=== PATIENT | male | born 1945 | race Hispanic/Latino ===

== ENCOUNTER 2018-04-29 10:00 | Outpatient (AMBR) | payer MEDICARE, MEDICAID, SELFPAY ==
--- NOTE | 2018-04-14 10:54 | PT.OIERPT ---
PT OP Initial Eval Patient Information Visit Reasons: back pain Medical Diagnosis: M54.5; M54.6 Treatment Dx #1: Back Pain Treatment Dx #2: Hip Weakness Start of Care: 04/14/18 Date of Onset: 2 years ago Initial Assessment Subjective Pt is a 72 y/o male c/o chronic back pain (02/09) with BLE weakness and tingling started several years ago. Pt's past xray showed moderate changes within his L3-L5 disc. Pt does not know his recent MRI results. Pt currently has difficulty with prolonged walking, standing, chores, self care activities, and lifting activities. Objective L/S AROM: all motions are WFL with pain end range extension Hip PROM: all motions are WFL but limited IR and ER motions Hip MMTs: grossly 3-/5 Palpation: increase paraspinal tone L2-L5; hypomobile facets L3-L5 facets oswestry score: 57% Assessment Pt demonstrate back pain with hip weakness consistent with L/S stenosis leading to decline function. Pt will attempt physical therapy if pain persist Pt will be refer back to PCP. Short Term and [employer] Goals 1) Increase L/S AROM and decrease oswestry score to 30% in 6 wks to be able to walk more than 1.5 hr 2) Increase core strength in 6 wks to be able to perform lifting activities 3) Increase bilateral hip AROM WFL in 6 wks to be able to perform chores 4) Increase bilateral hip MMTs to 4-/5 in 6 wks to be able to perform self care activities 5) Indep with HEP Treatment Plan 1) Manual Therapy 2) Therapeutic Activities 3) Therapeutic Exercises 4) Modalities (ice, heat, traction) Frequency and Duration 2 x wk for 6 wks Certification Dates: 04/14/18 to 07/14/18 Office Procedures PT Outpatient G-Codes Date of Service PT Date of Service: 04/14/18 G-Codes Walking & Moving Around Mobility Current Status G-Code: G8978: CL 60-80% Mobility Status G-Code: G8979: CJ 20-40% PT Procedures PT Date of Service: 04/14/18 OP PT Eval Mod Complex 30 minutes: Yes
--- NOTE | 2018-04-14 11:03 | PTNOTE_ITS ---
PT OP Initial Eval Patient Information Visit Reasons: back pain Medical Diagnosis: M54.5; M54.6 Treatment Dx #1: Back Pain Treatment Dx #2: Hip Weakness Start of Care: 04/14/18 Date of Onset: 2 years ago Initial Assessment Subjective Pt is a 72 y/o male c/o chronic back pain (02/09) with BLE weakness and tingling started several years ago. Pt's past xray showed moderate changes within his L3- L5 disc. Pt does not know his recent MRI results. Pt currently has difficulty with prolonged walking, standing, chores, self care activities, and lifting activities. Objective L/S AROM: all motions are WFL with pain end range extension Hip PROM: all motions are WFL but limited IR and ER motions Hip MMTs: grossly 3-/5 Palpation: increase paraspinal tone L2-L5; hypomobile facets L3-L5 facets oswestry score: 57% Assessment Pt demonstrate back pain with hip weakness consistent with L/S stenosis leading to decline function. Pt will attempt physical therapy if pain persist Pt will be refer back to PCP. Short Term and [employer] Goals 1) Increase L/S AROM and decrease oswestry score to 30% in 6 wks to be able to walk more than 1.5 hr 2) Increase core strength in 6 wks to be able to perform lifting activities 3) Increase bilateral hip AROM WFL in 6 wks to be able to perform chores 4) Increase bilateral hip MMTs to 4-/5 in 6 wks to be able to perform self care activities 5) Indep with HEP Treatment Plan 1) Manual Therapy 2) Therapeutic Activities 3) Therapeutic Exercises 4) Modalities (ice, heat, traction) Frequency and Duration 2 x wk for 6 wks Certification Dates: 04/14/18 to 07/14/18 Office Procedures PT Outpatient G-Codes Date of Service PT Date of Service: 04/14/18 G-Codes Walking & Moving Around Mobility Current Status G-Code: G8978: CL 60-80% Mobility Status G-Code: G8979: CJ 20-40% PT Procedures PT Date of Service: 04/14/18 OP PT Eval Mod Complex 30 minutes: Yes
--- NOTE | 2018-04-19 11:56 | PT.ODAYNRPT ---
PT Outpatient Daily Note Date of Service: April 19, 2018 OP Daily Note Visit Reasons: back pain Outpatient Physical Therapy Treatment Date: 04/19/18 Subjective: pt doing ok today with no complaints. Objective: see flow sheet. Assessment: pt walked in using SPC. assisted with bed mobility. pt had no difficulty understanding and performing the exercises today. he was on hotpack prior to ther ex. pt demonstrated fair mobility throughout ther ex. pt tolerated sci-fit with no fatigue or increase in pain. Plan: continue POC per PT. Length of Time (minutes) of Treatment: 30 Minutes Office Procedures PT Outpatient G-Codes Date of Service PT Date of Service: 04/14/18 G-Codes Walking & Moving Around Mobility Current Status G-Code: G8978: CL 60-80% Mobility Status G-Code: G8979: CJ 20-40% PT Procedures PT Date of Service: 04/19/18 Therapeutic Exercise 30 minutes: Yes PT Procedures PT Date of Service: 04/14/18 OP PT Eval Mod Complex 30 minutes: Yes
--- NOTE | 2018-04-21 10:25 | PT.ODAYNRPT ---
PT Outpatient Daily Note Date of Service: April 21, 2018 OP Daily Note Visit Reasons: back pain Outpatient Physical Therapy Treatment Date: 04/21/18 Subjective: Pt mention that his back feels a little better. Objective: Please see flow chart for list of ther ex performed Assessment: slight pain with hip distraction using belt. Pt was fatigue at the end of PT session. Plan: Continue with PT Length of Time (minutes) of Treatment: 30 Minutes Office Procedures PT Outpatient G-Codes Date of Service PT Date of Service: 04/14/18 G-Codes Walking & Moving Around Mobility Current Status G-Code: G8978: CL 60-80% Mobility Status G-Code: G8979: CJ 20-40% PT Procedures PT Date of Service: 04/19/18 Therapeutic Exercise 30 minutes: Yes PT Procedures PT Date of Service: 04/14/18 OP PT Eval Mod Complex 30 minutes: Yes PT Procedures PT Date of Service: 04/21/18 Therapeutic Exercise 30 minutes: Yes
--- NOTE | 2018-04-26 12:56 | PT.ODAYNRPT ---
PT Outpatient Daily Note Date of Service: April 26, 2018 OP Daily Note Visit Reasons: back pain Outpatient Physical Therapy Treatment Date: 04/26/18 Subjective: pt c/o having low back pain upon visit. Objective: see flow sheet. Assessment: pt walked in with SPC but he can ambulate without the SPC with short distances. good balance noted without SPC. pt seemed a little stiff with bed exercises at first so cued pt to relax and rest his head on pillow. assisted pt with bed mobility. pt had good endurance during after sci-fit. Plan: continue POC per PT. Length of Time (minutes) of Treatment: 30 Minutes Office Procedures PT Outpatient G-Codes Date of Service PT Date of Service: 04/14/18 G-Codes Walking & Moving Around Mobility Current Status G-Code: G8978: CL 60-80% Mobility Status G-Code: G8979: CJ 20-40% PT Procedures PT Date of Service: 04/19/18 Therapeutic Exercise 30 minutes: Yes PT Procedures PT Date of Service: 04/14/18 OP PT Eval Mod Complex 30 minutes: Yes PT Procedures PT Date of Service: 04/21/18 Therapeutic Exercise 30 minutes: Yes PT Procedures PT Date of Service: 04/26/18 Therapeutic Exercise 30 minutes: Yes
--- NOTE | 2018-04-29 12:54 | PT.ODAYNRPT ---
PT Outpatient Daily Note Date of Service: April 29, 2018 OP Daily Note Visit Reasons: back pain Outpatient Physical Therapy Treatment Date: 04/29/18 Subjective: Pt does not want the hot pack today. Pt feels that it makes is flank hurt. Pt feels that his back pain is a little better. Objective: Please see flow chart for list of ther ex performed Assessment: tolerate exercises with minimal pain; no hot pack was used today more flexion biased exercises performed Plan: Continue with PT Length of Time (minutes) of Treatment: 30 Minutes Office Procedures PT Outpatient G-Codes Date of Service PT Date of Service: 04/14/18 G-Codes Walking & Moving Around Mobility Current Status G-Code: G8978: CL 60-80% Mobility Status G-Code: G8979: CJ 20-40% PT Procedures PT Date of Service: 04/19/18 Therapeutic Exercise 30 minutes: Yes PT Procedures PT Date of Service: 04/14/18 OP PT Eval Mod Complex 30 minutes: Yes PT Procedures PT Date of Service: 04/21/18 Therapeutic Exercise 30 minutes: Yes PT Procedures PT Date of Service: 04/26/18 Therapeutic Exercise 30 minutes: Yes PT Procedures PT Date of Service: 04/29/18 Therapeutic Exercise 30 minutes: Yes
== END 2018-05-02 23:59 | disposition home or self-care (01) ==
PROVIDERS: PCP Physician Assistant; Referring Provider Physician Assistant; Visit Provider Physician Assistant
DX: I10 Essential (primary) hypertension (principal)
CPT/HCPCS: 97110; 97162; G8978; G8979

== ENCOUNTER 2018-05-28 13:00 | Outpatient (AMBR) | payer MEDICARE, MEDICAID, SELFPAY ==
--- NOTE | 2018-05-04 11:02 | PT.ODAYNRPT ---
PT Outpatient Daily Note Date of Service: May 04, 2018 OP Daily Note Visit Reasons: back pain Outpatient Physical Therapy Treatment Date: 05/04/18 Subjective: Pt mention that his low back is a little better. Pt stated that without the hot pack from previous visit; he didn't have the right flank pain. Pt still notice that is legs are weak and fatigues with prolonged walking. Objective: Please see flow chart for list of ther ex performed Assessment: no increase back pain with traction; minimal change with LE symptoms after traction. fatigue with LE strengthening exercises Plan: Continue with PT Length of Time (minutes) of Treatment: 45 Minutes Office Procedures PT Procedures PT Date of Service: 05/04/18 Traction Mechanical: Yes Therapeutic Activity 15 minutes: Yes Therapeutic Exercise 15 minutes: Yes
--- NOTE | 2018-05-06 11:26 | PT.ODAYNRPT ---
PT Outpatient Daily Note Date of Service: May 06, 2018 OP Daily Note Visit Reasons: back pain Outpatient Physical Therapy Treatment Date: 05/06/18 Subjective: Pt's feels okay. Pt mention that traction from previous visit seems to help Objective: Please see flow chart for list of ther ex performed Assessment: tolerate exercises with minimal pain; added more hip strengthening exercises today. Pt was fatigue at the end of PT session Plan: Continue with PT Length of Time (minutes) of Treatment: 45 Minutes Office Procedures PT Procedures PT Date of Service: 05/04/18 Traction Mechanical: Yes Therapeutic Activity 15 minutes: Yes Therapeutic Exercise 15 minutes: Yes PT Procedures PT Date of Service: 05/06/18 Traction Mechanical: Yes Therapeutic Activity 15 minutes: Yes Therapeutic Exercise 15 minutes: Yes
--- NOTE | 2018-05-10 11:48 | PT.ODAYNRPT ---
PT Outpatient Daily Note Date of Service: May 10, 2018 OP Daily Note Visit Reasons: back pain Outpatient Physical Therapy Treatment Date: 05/10/18 Subjective: Pt's back is okay. Pt notice a little more upper back pain today. Pt still feels weakness in his legs. Objective: Please see flow chart for list of ther ex performed Assessment: tolerate exercises with minimal pain; added more hip exercises Plan: Continue with PT Length of Time (minutes) of Treatment: 30 Minutes Office Procedures PT Procedures PT Date of Service: 05/04/18 Traction Mechanical: Yes Therapeutic Activity 15 minutes: Yes Therapeutic Exercise 15 minutes: Yes PT Procedures PT Date of Service: 05/06/18 Traction Mechanical: Yes Therapeutic Activity 15 minutes: Yes Therapeutic Exercise 15 minutes: Yes PT Procedures PT Date of Service: 05/10/18 Therapeutic Exercise 30 minutes: Yes
--- NOTE | 2018-05-12 11:22 | PT.ODAYNRPT ---
PT Outpatient Daily Note Date of Service: May 12, 2018 OP Daily Note Visit Reasons: back pain Outpatient Physical Therapy Treatment Date: 05/12/18 Subjective: Pt feels that his back is feeling better with more strength in the legs. Pt has been able to walk more with less leg symptoms. Traction continues to help his back pain Objective: Please see flow chart for list of ther ex performed Assessment: improved overall back mobility and LE strength; walking with less limp Plan: Continue with PT Length of Time (minutes) of Treatment: 45 Minutes Office Procedures PT Procedures PT Date of Service: 05/04/18 Traction Mechanical: Yes Therapeutic Activity 15 minutes: Yes Therapeutic Exercise 15 minutes: Yes PT Procedures PT Date of Service: 05/06/18 Traction Mechanical: Yes Therapeutic Activity 15 minutes: Yes Therapeutic Exercise 15 minutes: Yes PT Procedures PT Date of Service: 05/10/18 Traction Mechanical: Yes Therapeutic Exercise 30 minutes: Yes PT Procedures PT Date of Service: 05/12/18 Traction Mechanical: Yes Therapeutic Activity 15 minutes: Yes Therapeutic Exercise 15 minutes: Yes
--- NOTE | 2018-05-19 12:03 | PT.ODS1RPT ---
PT OP Progress/Discharge Note Date of Service: May 19, 2018 Progress Note/DC Note Progress Note/Discharge Note: Progress Note Patient Information Visit Reasons: back pain Medical Diagnosis: M54.6 Treatment Dx #1: Back Pain Treatment Dx #2: Hip Weakness Service Continue Service or Discharge: Continue Service Certification Date Certification Dates: 05/19/18 to 08/19/18 Status Subjective: Pt mention that his back still hurts but it has been less since starting physical therapy. Pt has been able to walk longer, stand, perform chores with less limitation. Pt mention that after 45 mins of activities his legs gives out and feels weak. Pt will like to finish off his last 2 sessions of PT. Objective: L/S AROM: all motions are WFL Hip PROM: all motions are WFL Hip MMTs: grossly 3/5 Palpation: decrease paraspinal tone L2-L5 region Oswestry score: 37% Assessment: Pt demonstrate improvement with overall endurance and mobility allowing him to perform ADLs, chores, and ambulation with less limitation. Pt will continue to benefit from physical therapy to increase strength, mobility, and work on functional tasks. Pt has not met set goals yet, thank you for your referrals. Plan: Continue with PT and add 6 sessions (2 x wk for 3 wks) Office Procedures PT Outpatient G-Codes Date of Service PT Date of Service: 05/19/18 G-Codes Walking & Moving Around Mobility Current Status G-Code: G8978: CL 60-80% Mobility Status G-Code: G8979: CK 40-60% PT Procedures PT Date of Service: 05/04/18 Traction Mechanical: Yes Therapeutic Activity 15 minutes: Yes Therapeutic Exercise 15 minutes: Yes PT Procedures PT Date of Service: 05/06/18 Traction Mechanical: Yes Therapeutic Activity 15 minutes: Yes Therapeutic Exercise 15 minutes: Yes PT Procedures PT Date of Service: 05/10/18 Traction Mechanical: Yes Therapeutic Exercise 30 minutes: Yes PT Procedures PT Date of Service: 05/12/18 Traction Mechanical: Yes Therapeutic Activity 15 minutes: Yes Therapeutic Exercise 15 minutes: Yes PT Procedures PT Date of Service: 05/19/18 Traction Mechanical: Yes Therapeutic Activity 15 minutes: Yes Therapeutic Exercise 15 minutes: Yes
--- NOTE | 2018-05-25 14:23 | PT.ODAYNRPT ---
PT Outpatient Daily Note Date of Service: May 25, 2018 OP Daily Note Visit Reasons: back pain Outpatient Physical Therapy Treatment Date: 05/25/18 Subjective: Pt mention that his legs are fatigue and back is feeling okay. Objective: Please see flow chart for list of ther ex performed Assessment: very fatigue at the end of PT session due to leg exercises Plan: Continue with PT Length of Time (minutes) of Treatment: 45 Minutes Office Procedures PT Outpatient G-Codes Date of Service PT Date of Service: 05/19/18 G-Codes Walking & Moving Around Mobility Current Status G-Code: G8978: CL 60-80% Mobility Status G-Code: G8979: CK 40-60% PT Procedures PT Date of Service: 05/04/18 Traction Mechanical: Yes Therapeutic Activity 15 minutes: Yes Therapeutic Exercise 15 minutes: Yes PT Procedures PT Date of Service: 05/06/18 Traction Mechanical: Yes Therapeutic Activity 15 minutes: Yes Therapeutic Exercise 15 minutes: Yes PT Procedures PT Date of Service: 05/10/18 Traction Mechanical: Yes Therapeutic Exercise 30 minutes: Yes PT Procedures PT Date of Service: 05/12/18 Traction Mechanical: Yes Therapeutic Activity 15 minutes: Yes Therapeutic Exercise 15 minutes: Yes PT Procedures PT Date of Service: 05/19/18 Traction Mechanical: Yes Therapeutic Activity 15 minutes: Yes Therapeutic Exercise 15 minutes: Yes PT Procedures PT Date of Service: 05/25/18 Traction Mechanical: Yes Therapeutic Activity 15 minutes: Yes Therapeutic Exercise 15 minutes: Yes
--- NOTE | 2018-05-28 13:25 | PT.ODS1RPT ---
PT OP Progress/Discharge Note Date of Service: May 28, 2018 Progress Note/DC Note Progress Note/Discharge Note: DC Note Patient Information Visit Reasons: back pain Medical Diagnosis: M54.6 Treatment Dx #1: Back Pain Treatment Dx #2: Hip Weakness Service Continue Service or Discharge: Discharge Discharge Date: 05/28/18 Status Subjective: Pt mention that his back pain is less (3/10) with legs are stronger allowing him to walk, stand, and perform his normal ADLs with less limitation. Pt feels comfortable being release from physical therapy with exercises to continue at home. Objective: L/S AROM: all motions are WFL Hip PROM: all motions are WNL Hip MMTs: grossly 3+/5 Oswestry score: 37% Assessment: Pt has completed authorized sessions and will no longer benefit from physical therapy due to maintaining functional mobility and hip strength. Pt has met most goals set in therapy and was instructed on HEP last session. Pt performed exercises safely, thank you for your referrals. Plan: D/C home with HEP and follow up with MD BARNES Office Procedures PT Outpatient G-Codes Date of Service PT Date of Service: 05/19/18 G-Codes Walking & Moving Around Mobility Current Status G-Code: G8978: CL 60-80% Mobility Status G-Code: G8979: CK 40-60% PT Outpatient G-Codes Date of Service PT Date of Service: 05/28/18 G-Codes Walking & Moving Around Mobility Status G-Code: G8979: CL 60-80% Mobility DC Status G-Code: G8980: CJ 20-40% PT Procedures PT Date of Service: 05/04/18 Traction Mechanical: Yes Therapeutic Activity 15 minutes: Yes Therapeutic Exercise 15 minutes: Yes PT Procedures PT Date of Service: 05/06/18 Traction Mechanical: Yes Therapeutic Activity 15 minutes: Yes Therapeutic Exercise 15 minutes: Yes PT Procedures PT Date of Service: 05/10/18 Traction Mechanical: Yes Therapeutic Exercise 30 minutes: Yes PT Procedures PT Date of Service: 05/12/18 Traction Mechanical: Yes Therapeutic Activity 15 minutes: Yes Therapeutic Exercise 15 minutes: Yes PT Procedures PT Date of Service: 05/19/18 Traction Mechanical: Yes Therapeutic Activity 15 minutes: Yes Therapeutic Exercise 15 minutes: Yes PT Procedures PT Date of Service: 05/25/18 Traction Mechanical: Yes Therapeutic Activity 15 minutes: Yes Therapeutic Exercise 15 minutes: Yes PT Procedures PT Date of Service: 05/28/18 Therapeutic Exercise 30 minutes: Yes
== END 2018-06-02 23:59 | disposition home or self-care (01) ==
PROVIDERS: PCP Physician Assistant; Referring Provider Physician Assistant; Visit Provider Physician Assistant
DX: M54.5 Low back pain (principal); M54.6 Pain in thoracic spine; R53.1 Weakness; G89.29 Other chronic pain; R26.2 Difficulty in walking, not elsewhere classified; I10 Essential (primary) hypertension
CPT/HCPCS: 97012; 97110; 97530; G8978; G8979; G8980